=== PATIENT | male | born 1995 | race Two or more races ===

== ENCOUNTER 2016-12-07 21:12 | Emergency (ER) | payer OTHER ==
--- NOTE | 2016-12-07 22:15 | RAD ---
INDICATION: Laceration posterior RIGHT elbow with glass. Assess for foreign body. COMPARISON: No relevant prior exams available on the [facility] [place] PACS for comparison. TECHNIQUE: AP, lateral, and oblique views RIGHT elbow. REPORT: Radial posterior soft tissue swelling and subcutaneous emphysema. No conspicuous foreign body evident. Negative for joint effusion, fracture, or malalignment. IMPRESSION: Radial posterior soft tissue swelling and subcutaneous emphysema. No radiographic conspicuous foreign body evident.
[2016-12-08] MEDS ORDERED: Lidocaine 2% EPI 1:200000 MPF* 20 ML VIAL ONE (01:00)
--- NOTE | 2016-12-08 01:17 | ED ---
Laceration/Wound HPI - HPI Summary HPI Summary: 21 male presents to ED with complaints of right elbow laceration after trying to open a door a glass breaking, cutting his elbow. Patient states this occurred just [employer]. He pulled a big piece of glass out of wound. Friends super- glued laceration [employer]. Tetanus is UTD as he just got it for school. Denies nay other injuries, no loss of ROM. Minimal to no bleeding. No other complaints. No PMHx other than asthma. - History of Current Complaint Stated Complaint: LAC RT ELBOW Time Seen by Provider: 12/07/16 22:08 Hx Obtained From: Patient Onset/Duration: Sudden Onset Aggravating: Movement Alleviating: Compression, Other - super glue Onset Severity: Moderate Current Severity: Mild Pain Intensity: 6 Pain Scale Used: 0-10 Numeric Associated Signs & Symptoms: Negative Related Hx: Dominant Hand (Right) - Allergy/Home Medications Allergies/Adverse Reactions: Allergies Allergy/AdvReac Type Severity Reaction Status Date / Time Amoxicillin Allergy Rash Verified 12/07/16 21:16 PMH/Surg Hx/FS Hx/Imm Hx Endocrine/Hematology History: Denies: Hx Diabetes Cardiovascular History: Denies: Hx Hypertension Respiratory History: Reports: Hx Asthma - Surgical History Surgery Procedure, Year, and Place: none - Immunization History Date of Tetanus Vaccine: 2 weeks ago Immunizations Up to Date: Yes Infectious Disease History: No Infectious Disease History: Denies: Traveled Outside the [place] in Last 30 Days - Family History Known Family History: Positive: None - Social History Alcohol Use: Weekly Substance Use Type: Reports: None Smoking Status (MU): Never Smoked Tobacco Review of Systems Constitutional: Negative Cardiovascular: Negative Respiratory: Negative Positive: Other - laceraton All Other Systems Reviewed And Are Negative: Yes Physical Exam Triage Information Reviewed: Yes Vital Signs On Initial Exam: Initial Vitals Temp Pulse Resp BP Pulse Ox 99 F 76 18 118/71 100 12/07/16 21:15 12/07/16 21:15 12/07/16 21:15 12/07/16 21:15 12/07/16 21:15 Vital Signs Reviewed: Yes Appearance: Positive: Well-Appearing, No Pain Distress, Well-Nourished Skin: Positive: Warm, Skin Color Reflects Adequate Perfusion, Dry, Other - 1.5cm laceration of right elbow. .5cm width, superficial epidermal layer, no SQ involvement. no FB. no bleeding, super glue removed. another noted .5cm laceration noted, superifical, small.. Negative: Cold, Numb, Pale, Erythema @ Head/Face: Positive: Normal Head/Face Inspection Eyes: Positive: Conjunctiva Clear ENT: Positive: Hearing grossly normal Neck: Positive: Supple, Nontender Respiratory/Lung Sounds: Positive: Clear to Auscultation, Breath Sounds Present. Negative: Rales, Rhonchi, Wheezes Cardiovascular: Positive: Normal, RRR, Pulses are Symmetrical in both Upper and Lower Extremities - 2+ radial b/l. Negative: Murmur, Rub Musculoskeletal: Positive: Normal, Strength/ROM Intact, Pain @ - at laceration. Negative: Limited @, Interruption @ Neurological: Positive: Normal, Sensory/Motor Intact - sensation intact, Alert, Oriented to Person Place, Time, Reflexes Intact, NV Bundle Intact Distally, Normal Gait Psychiatric: Positive: Affect/Mood Appropriate Procedures - Laceration/Wound Repair 1 Location: upper extremity - right elbow Description: Linear Anesthesia: Local, 1.0%, Lido Length, Depth and Shape: 1.5cm length, linear, superficial Betadine Prep?: Yes Irrigated w/ Saline (ccs): 200 Laceration/Wound Explored: clean, no foreign body removed Closure: Single Layer Suture Type: Prolene Number of Sutures: 3 Sterile Dressing Applied?: Yes 2 Location: upper extremity - right elbow Description: Linear Length, Depth and Shape: .5cm linear, superficial Irrigated w/ Saline (ccs): 200 Laceration/Wound Explored: clean, no foreign body removed Closure: Skin Adhesive Sterile Dressing Applied?: Yes Diagnostics - Vital Signs Vital Signs Temp Pulse Resp BP Pulse Ox 12/07/16 22:39 99.2 F 73 16 121/70 100 12/07/16 21:15 99 F 76 18 118/71 100 - Laboratory Lab Statement: Any lab studies that have been ordered have been reviewed, and results considered in the medical decision making process. - Radiology right elbow Xray Interpretation: Positive (See Comments) - soft tissue swelling, no evidence of FB. no fracture Radiology Interpretation Completed By: Radiologist Laceration Repair Course/Dx - Course Course Of Treatment: x-ray obtained to rule out FB and fracture. negative. laceration was sutured with 3 sutures without complication. closed nicely, well approximated. sterile procedure used and patient tolerated procedure well. remove in 7 days. smaller laceration of rght elbow glued. keep clean and dry. tetanus already UTD. Follow up PCP. Aware of worsening signs and symptoms to watch out for - Differential Dx Differental Diagnoses: Abrasion, Avulsion, Laceration - Clinical Impression Provider Diagnoses: Elbow laceration Discharge - Discharge Plan Condition: Stable Disposition: HOME Patient Education Materials: Care For Your Stitches (ED), Laceration (ED) [facility] - Additional Instructions: Watch for signs of infection. Do not get wet for 24-48 hours. After, gently rinse, do not scrub. Apply triple antibiotic ointment. Follow up with pcp and have stitches removed in 7 days.
[2016-12-08 01:24] VITALS: BP 119/64
== END 2016-12-08 01:23 | disposition home or self-care (01) ==
LOC: ED 21:12
DX: S51.011A Laceration without foreign body of right elbow, initial encounter (principal); W25.XXXA Contact with sharp glass, initial encounter; Y93.89 Activity, other specified; Y92.9 Unspecified place or not applicable
CPT/HCPCS: 12002; 99282